=== PATIENT | female | born 1975 | race Caucasian/White ===

== ENCOUNTER 2020-05-12 14:35 | Inpatient (IN) | payer SELFPAY, OTHER ==
[2020-05-12] VITALS (22 sets, daily range): BP systolic 110–133; BP diastolic 68–85; PULSE 54–126; TEMP 27.7–37.6; O2SAT 82–99; BMI 27.0
[2020-05-12] MEDS: Lactated Ringers 1,000 ML 50 ML IV (15:10)
[2020-05-12] MEDS: Oxytocin 30 units/NS 500 ml 30 UNITS/500 ML IV.SOLN IV (15:43)
[2020-05-12 15:47] LABS: Absolute Lymphocyte Count 1.07 X10^3/uL (0.83-4.51); Absolute Neutrophil Count 7.6 X10^3/uL (2.0-7.7); Basophil# 0.03 X10^3/uL; Basophil% 0.3 % (0-1); Eosinophil# 0.05 X10^3/uL; Eosinophils% 0.5 % (0-5); Hematocrit 37.2 % (37-47); Hemoglobin 12.7 g/dL (12.0-15.0); Lymphocyte # 1.07 X10^3/ul (4.0); Lymphocyte % 11.4 % (19-41); Mean Corp Hgb Conc 34.1 g/dL (32-36); Mean Corpuscular Hgb 33.5 pg (27.0-32.0); Mean Corpuscular Volume 98.2 fL (81-99); Monocyte# 0.53 X10^3/uL; Monocyte% 5.7 % (0-10); NRBC Flagged by Analyzer 0 % (0-5); Neutrophil # 7.62 X10^3/uL (2.7-7.7); Neutrophil % 81.5 % (47-70); Platelet Count 194 K/mm3 (150-450); RBC Distribution Width CV 13.3 % (11.6-14.6); RBC Distribution Width SD 47.9 fl (35.1-43.9); Red Blood Count 3.79 M/mm3 (4.2-5.4); White Blood Count 9.4 K/mm3 (4.4-11.0)
[2020-05-12 16:29] LABS: Amphetamine Urine VISTA NEGATIVE (<1000 ng/mL); Barbiturate Urine VISTA NEGATIVE (< 200 ng/mL); Benzodiazepine Urine VISTA NEGATIVE (< 200 ng/mL); Cocaine Urine VISTA NEGATIVE (< 300 ng/mL); Ecstacy Urine VISTA NEGATIVE (< 500 ng/mL); Methadone Urine VISTA NEGATIVE (< 300 ng/mL); PCP Urine VISTA NEGATIVE (< 25 ng/mL); THC Urine VISTA NEGATIVE (< 50 ng/mL); Vista UDS pH Range 6
[2020-05-12] MEDS: Lactated Ringers 500 ML 999 ML IV (17:41)
--- NOTE | 2020-05-12 17:55 | HP.PCM_ITS ---
- Problem List (1) Advanced maternal age (AMA), 40 years or greater Status: Acute (2) Late care Status: Acute (3) Grand multipara Status: Acute (4) Positive GBS test Status: Acute (5) Oligohydramnios Status: Acute History Date of Admission: 05/12/20 Final CARLOS: 05/19/20 Final CARLOS Source: LMP Gestational age: 39 Weeks and 0 Days History of this : This is a 44 year-old, G [9], P [7017], at 39 weeks gestational age. Presented to office for routine care visit today. During visit limited bedside US SHANIQUE 4cm. NST reactive. Decision for induction of labor due to oligohydramnios and AMA. Allergies No Known Allergies Allergy (Verified 05/12/20 14:56) Home Medications: Home Medications Sertraline HCl [Zoloft] 50 mg PO DAILY 05/12/20 Thyroid,Pork [Dough Machine Operator Thyroid 120] 90 mg PO DAILY 05/12/20 Smoking Status: Never smoker Alcohol: None Substance Use Type: Anxiety Medications Number of Fetus(es): 1 NST - FHR Rate Baby A Baseline: 135 Variability:: Moderate Accelerations:: 15 x 15 Decelerations:: Prolonged FHR Category:: Category II Uterine Activity:: contractions mild every 3-4 minutes History Past Pregnancies: Past Pregnancies Delivery Date Name GA/ Weeks Outcome Route Wt Sex Labor Length Anesthesia Delivery Location Provider FOB Labs: GBS positive 1 hr GCT elevated, 3hr GTT normal RPR negative Rubella Immune HBsAG negative HepC antibody negative HIV negative GC/CT negative O positive Expected Delivery Method: Spontaneous Vaginal Review of Systems Constitutional: Denies: Chills, Fever, Weight Change Eyes: Denies: Blurred vision HEENT: Denies: Head Aches, Sinus Congestion, Sinus Drainage Cardiovascular: Denies: Chest Pain, Palpitations Respiratory: Denies: Cough, Shortness of breath at rest, Sputum production Gastrointestinal: Denies: Abdominal Pain, Nausea, Vomiting Genitourinary: Denies: Dysuria Musculoskeletal: Denies: Joint Pain, Joint Tenderness Skin: Denies: Rash, Wounds Neurological: Denies: Numbness, Tingling, Focal weakness Psychiatric: Denies: Anxiety, Depression, Homicidal Ideations, Suicidal Ralph ations Hematologic/ Lymphatic: Denies: Easy Bruising, Easy Bleeding Physical Exam Vitals: Vital Signs Temp Pulse BP Pulse Ox 99.1 F 113 H 117/80 98 05/12/20 17:00 05/12/20 17:53 05/12/20 16:59 05/12/20 17:53 General: Alert, Oriented x3, Cooperative HEENT: Atraumatic, Normocephalic Cardiovascular: Regular rate, Regular Rhythm, No murmurs Lungs: Clear to auscultation, Normal air movement, No rhonchi, No wheeze Abdomen: Bowel Sounds Present, Soft, Non Tender, Gravid Extremities:: No edema Neurological: Deep Tendon Reflexes 2+/4 and Symmetrical. Negative for: Clonus ASSEMBLER CONVERTIBLE TOP: Normal external genitalia Estimated gestational size: Appropriate for gestational size Presentation: Cephalic Cervix Dilation (cm): 3 - small amount of meconium stained fluid. Prolonged FHR deceleration down to 60 and recovered to baseline 135 Station: -2 Effacement (%): 80 Assessment/Plan All Active Problems Advanced maternal age (AMA), 40 years or greater (Acute) Late care (Acute) Grand multipara (Acute) Positive GBS test (Acute) Oligohydramnios (Acute) This is a 44 year-old, G [9], P [7017], at 39 weeks gestational age. A:Induction of Labor at term Oligohydramnios GBS Positive Advanced Maternal age Grandmultipara P: 1) Routine admission and labs 2) GBS prophylaxis 3) AROM for small amount of Meconium stained fluid. FHR deceleration, prolonged. notified and patient stable 4) Continuous EFM 5) Planning unmedicated 6) collaborative physician.
[2020-05-12] MEDS: Amnioinfusion- 0.9% NS 1,000 ML IV.SOLN. 300 ML INTRA-UTER (19:30)
--- NOTE | 2020-05-12 22:58 | PCM.PROGNOTE ---
Patient Problems: Active and Suspected Problems Advanced maternal age (AMA), 40 years or greater (Acute) Late care (Acute) Grand multipara (Acute) Positive GBS test (Acute) Oligohydramnios (Acute) Subjective: Resting in bed, coping with contractions. at bedside. Patient requesting section. Patient states, I just want to t get it over with. Objective: FHR 135, moderate variability, accels, Category 1 TOCO: every 3 minutes, mild to moderate to palpation Cervix 4cm/80%/-1 Pitocin at 8mu's Amnioinfusion at 100ml/hr - Physical Exam Vitals/I&O's: Vital Signs Temp Pulse BP Pulse Ox 97.9 F 101 H 133/83 H 99 05/12/20 22:18 05/12/20 22:18 05/12/20 22:18 05/12/20 22:17 Weight: 167 lb 8.821 oz Body Mass Index (BMI) 27.0 Intake and Output for Last 24 Hours 05/10/20 05/11/20 05/12/20 23:59 23:59 23:59 Intake Total 1701.96 / 1701.96 Output Total 500 / 500 Balance 1201.96 / 1201.96 General: Alert, Oriented x3, Cooperative Microbiology Past 72 Hours 05/12/20 15:15 Mucosa - Nasopharyngeal SARS-CoV-2 Antigen (Rapid) - Final Laboratory Results 05/12/20 14:10: WBC 9.4, RBC 3.79 L, Hgb 12.7, Hct 37.2, MCV 98.2, MCH 33.5 H, MCHC 34.1, RDW Std Deviation 47.9 H, RDW Coeff of Marquise 13.3, Plt Count 194, MPV 9.0, Immature Gran % (Auto) 0.600, Neut % (Auto) 81.5 H, Lymph % (Auto) 11.4 L, Burnett % (Auto) 5.7, Eos % (Auto) 0.5, Baso % (Auto) 0.3, Absolute Neuts (auto) 7.6, Absolute Lymphs (auto) 1.07, Nucleated RBC % 0 05/12/20 14:10: Blood Type O POSITIVE, Antibody Screen NEGATIVE 05/12/20 15:00: Urine Opiates Screen NEGATIVE, Urine Methadone Screen NEGATIVE, Ur Barbiturates Screen NEGATIVE, Ur Phencyclidine Scrn NEGATIVE, Ur Amphetamines Screen NEGATIVE, U Methamphetamin-MDMA NEGATIVE, U Benzodiazepines Scrn NEGATIVE, Urine Cocaine Screen NEGATIVE, U Cannabinoids Screen NEGATIVE, Ur Drug Screen Comment Current Medications Acetaminophen (Acetaminophen 500 Mg Tablet) 500 - 1,000 mg PO Q6H PRN PRN PRN Reason: Pain Score 1-3 Al Hydroxide/Mg Hydroxide (Mag Hydrox/Al Hydrox/Simeth 30 Ml Udc) 15 - 30 ml PO Q4H PRN PRN PRN Reason: INDIGESTION Citric Acid/Sodium Citrate (Sodium Citrate/Citric Acid 30 Ml Udc) 30 ml PO X1 PRN PRN Reason: Section Fentanyl Citrate (Fentanyl 100 Mcg/2 Ml Ampul) 25 - 50 mcg IV Q2H PRN PRN PRN Reason: Pain Score 4-10 Lactated Ringer's () 500 mls @ 999 mls/hr IV .Q31M PRN PRN Reason: Epidural Lactated Ringer's () 500 mls @ 999 mls/hr IV .Q31M PRN PRN Reason: Corrective Measures Last Infusion: 05/12/20 18:12 Dose: Infused Documented by: Lactated Ringer's () 1,000 mls @ 50 mls/hr IV .Q20H [facility] Last Infusion: 05/12/20 18:12 Dose: 50 mls/hr Documented by: Oxytocin/Sodium Chloride () 30 units in 500 mls @ 2 mls/hr IV .Q250H [facility] Last Infusion: 05/12/20 22:20 Dose: 8 mls/hr Documented by: Penicillin G Potassium/Dextrose (Penicillin G Potassium) 3 mu in 50 mls @ 100 mls/hr IV Q4H [facility] Last Infusion: 05/12/20 20:28 Dose: Infused Documented by: Ondansetron HCl (Ondansetron 4 Mg/2 Ml Vial) 4 mg IV Q4H PRN PRN PRN Reason: NAUSEA Prochlorperazine Edisylate (Prochlorperazine 10 Mg/2 Ml Vial) 10 mg IV Q6H PRN PRN PRN Reason: NAUSEA Sodium Chloride (0.9% Saline Lock 10 Ml Syringe) 10 - 40 ml IV X1 PRN PRN Reason: SALINE FLUSH Medical Necessity - Tobacco Use Smoking Status: Never smoker Assessment/Plan All Active Problems Advanced maternal age (AMA), 40 years or greater (Acute) Late care (Acute) Grand multipara (Acute) Positive GBS test (Acute) Oligohydramnios (Acute) A:Induction of labor Category 1 FHT Meconium stained fluid P: 1) Reviewed with patient current status stable and Category 1. Reviewed risks, benefits, and alternatives to elective section. Discussed would not recommend elective at this time. Reviewed labor, induction and normal course and that she is not currently in active labor. Patient and questions answered and agreeable to continue with labor induction at this time. 2) Continue with amnioinfusion
[2020-05-13] VITALS (77 sets, daily range): BP systolic 95–141; BP diastolic 55–93; PULSE 62–109; RESP 16–18; TEMP 36.2–37.9; O2SAT 96–100
[2020-05-13] MEDS: Lactated Ringers 1,000 ML 200 ML IV (00:26)
[2020-05-13] MEDS: fentaNYL-bupivacaine (epidural) 100 ML BAG EPIDURAL (00:54)
[2020-05-13] MEDS: Lactated Ringers 500 ML 999 ML IV ×2 (01:21)
[2020-05-13] MEDS: Oxytocin 30 units/NS 500 ml 30 UNITS/500 ML IV.SOLN 334 UNITS IV (03:50)
--- NOTE | 2020-05-13 04:02 | OP.PCM_ITS ---
Problem List (1) Advanced maternal age (AMA), 40 years or greater Status: Acute (2) Late care Status: Acute (3) Grand multipara Status: Acute (4) Positive GBS test Status: Acute (5) Oligohydramnios Status: Acute (6) Vaginal delivery Status: Acute (7) Meconium stained amniotic fluid, delivered, current hospitalization Status: Acute Vaginal Delivery Maternal Presentation: Medically Indicated Induction Method of Induction: Pitocin Medical Reason for Induction: - - advanced maternal age, oligohydramnios Amniotic Fluid Description: Moderate meconium Final CARLOS: 05/19/20 Final CARLOS Source: US <20 weeks Gestational age: 39 Weeks and 1 Days Date of Procedure: 05/13/20 Pre-Operative Diagnosis: Induction of Labor Post-Operative Diagnosis: Vaginal delivery Surgery/ Procedure Performed: Spontaneous Vaginal Delivery Type of Anesthesia: Epidural Description of Procedure: Progressed to anterior lip. Trial push and anterior lip reduced and good descent with pushing effort. Energy Efficiency Engineer, respiratory, and nursery called for delivery. of viable male infant over intact perineum. APGARS 8,9. head delivered and body forth coming, nuchal cord x1 loose, delivered through. Infant placed on maternal abdomen, mouth and nares suctioned for secretions, strong cry. Pitocin started for active 3rd stage management. Cord clamped and cut after pulsations ceased, delayed cord clamping. Placenta delivered, intact, 3 vessel cord. Perineum inspected and revealed intact perineum. Fundus firm, hemostasis achieved, EBL 100ml. Vaginal sweep completed, sponge and instrument count correct. Mom and baby stable, family bonding well, planning to breastfeed. notified of delivery. Presentation: Vertex Placental Delivery Description: Spontaneous Placenta Disposition: [facility] Cord Vessel Description: 3 Vessels Cord Entanglement: Around neck x 1, loose Estimated Blood Loss: 100 ml A gender: Male (1 minute): 8 (5 minute): 9 Episiotomy Description: None Laceration: None Medications given after delivery: IV Pitocin Complications: None
[2020-05-13] MEDS: Ibuprofen 600 MG Tablet PO ×2 (08:13→20:11)
--- NOTE | 2020-05-13 12:05 | NURSING ---
discussed with pt post- depression. pt currently taking zoloft and states it has helped greatly. pt also states that her doctor told her that she is currently on a low dose and it can be increased if needed. pt states she has help at home and does not feel like she needs to talk to the psychiatric social worker at this time
[2020-05-13] MEDS: Lactated Ringers 500 ML IV.SOLN. IV (14:17)
[2020-05-13] MEDS: 0.9% Saline Lock 10 ML Syringe IV (14:18)
[2020-05-13] MEDS: 0.9% Normal Saline 1,000 ML 125 ML IV ×2 (15:13→19:28)
--- NOTE | 2020-05-13 16:53 | OP.PCM_ITS ---
Report of Operation Date of Procedure: 05/13/20 Pre-Operative Diagnosis: Sterilization request Post-Operative Diagnosis: same Surgery/Procedure Performed:: bilateral salpingectomy Description of Surgical Findings:: normal tubes and ovaries log data technician: Shelley Gallego Type of Anesthesia:: Spinal Anesthesiologist: Rita Villalta Special Medications: none Specimen's removed: bialteral fallopian tubes Drains: none Estimated Blood Loss (mL): 10 Fluids Replaced: 400 mL Description of Procedure: Consent was reviewed. Patient was again informed that this was permanent, irreversible, risk of failure regret and ectopic . She desired to proceed. Spinal was placed and anesthesia was adequate. Patient was prepped and draped in normal sterile fashion in a dorsal supine position. A 4 cm incision was made under the umbilicus using her previous scar and extended through to the underlying layer of fascia with the scalpel. The peritoneum was entered sharply. The incision was extended with sharp dissection. Patient was tilted to the left side and her right tube was identified and followed out to the fimbriated end. It was tented up with [place] clamps. LigaSure device was used to clamp, seal and transect the antimesenteric portion of the tube to the cornual insertion. The LigaSure device was used to clamp, seal and transect the tube from the cornual insertion. Excellent hemostasis of the pedicles was noted. The same procedure was performed on the contralateral side. Again the holes were hemostatic. The fascia was closed en bloc with the peritoneum with 0 Vicryl suture in a running standard fashion. The skin was closed in subcuticular fashion by Dr. Gallego. I performed the remainder the procedure with assistance. Start time: 1634 End time:1657 Grafts/Implants Used: none - Complications none - Admit VTE Documentation VTE Present on Admission: No VTE Mechan Device Prophylaxis: SCD's VTE Pharm Prophylaxis ordered?: No Reason prophylaxis not ordered:: Procedure Not Indicated
[2020-05-13 17:28] LABS: Pathology Specimen OB SEE PATHOLOGY REPORT
--- NOTE | 2020-05-13 17:29 | NURSING ---
1612 pt left the floor via her bed to our op room 1 for an elective tubal ligation. 1710 pt returned from operative room 1 with this nurse, pt alert but drowsy. pt/s spouse is in the room. pt given juice and water to drink, in to see the pt and to give an account of surgery and pt made aware surgery went well. pt and spouse denied they had any questions.
--- NOTE | 2020-05-13 17:45 | FALS_PTH ---
PATIENT: SOCORRO MCCONNELL LOC: [facility] U#:[id number] AGE/SX: 44/F ROOM: WP015 RE05/12/[address]: Nydia Freitas CNM : 1975 BED: 1 DIS: 05/14/2020 SPEC #: [id number] RECD: 05/14/20 07:37 STATUS: CAMPOS REQ #: [id number] NAVID: 05/13/20 17:[address]: Sri Baker DEPT: SURGICAL PATHOLOGY RECD BY: Carolina Sutton ENTERED: 05/14/20 07:38 SP TYPE: FALL TUBES OTHR DR: CESAR Goldberg Dr., Tissues: Fallopian tube Procedures: Surgery Specimen Level II Comments: @ Ordering doctor for [facility] edited from [email or web address] to @ by PILAR at 05/14/20 1502 @ Submitting doctor edited from MANASA to @ by PILAR at 05/14/20 1502 HEADER OPERATION: Tubal ligation PRE-OP DIAGNOSIS: Sterilization TISSUE SUBMITTED: Fallopian tubes MICROSCOPIC DIAGNOSIS Bilateral fallopian tubes, salpingectomy: Bilateral fallopian tubes including fimbrial ends, no pathologic diagnosis. IRVIN:anabella 05/15/20 MICROSCOPIC DESCRIPTION Slides are reviewed. GROSS DESCRIPTION Received in fixative is one container labeled with the patient's name and designated bilateral fallopian tubes, left has suture. The specimen consists of bilateral fallopian tubes including fimbrial ends. The right fallopian tubes measure 6 cm in length and up to 1 cm in diameter and the left fallopian tube measures 7 cm in length and 0.8 cm in diameter. Also present in the container is a detached tubular segment of tissue measuring 1 cm in length and 0.6 cm in diameter. Sections reveal unremarkable cut surfaces. Bird Trapper sections are submitted in two cassettes as follows: 1 - right fallopian tube, 2??left fallopian tube including detached segment which is inked black. / IRVIN:anabella 05/14/20 TC:4 CPT: 37633 x2
[2020-05-13] MEDS: oxyCODONE 5 MG Tablet PO ×2 (17:49→22:55)
[2020-05-13] MEDS: Acetaminophen 500 MG Tablet 1000 MG PO (20:11)
[2020-05-13] MEDS: Sertraline 50 MG Tablet PO (20:12)
[2020-05-14] VITALS (10 sets, daily range): BP systolic 104–109; BP diastolic 63–71; PULSE 60–71; RESP 12–18; TEMP 36.4–37.1; O2SAT 95–96
[2020-05-14] MEDS: Ibuprofen 600 MG Tablet PO ×2 (02:11→11:44)
[2020-05-14] MEDS: 0.9% Normal Saline 1,000 ML 125 ML IV (02:31)
[2020-05-14] MEDS: oxyCODONE 5 MG Tablet PO ×3 (03:30→15:03)
[2020-05-14] MEDS: Acetaminophen 500 MG Tablet 1000 MG PO (05:40)
--- NOTE | 2020-05-14 08:27 | PN.OBGYN_ITS ---
Patient Problems: Active and Suspected Problems Advanced maternal age (AMA), 40 years or greater (Acute) Late care (Acute) Grand multipara (Acute) Positive GBS test (Acute) Oligohydramnios (Acute) Vaginal delivery (Acute) Meconium stained amniotic fluid, delivered, current hospitalization (Acute) Subjective: Patient seen at bedside. Still having pain throughout the night after bilateral tubal ligation yesterday. going well. Desires discharge home later today. - Physical Exam Vitals/I&O's: Vital Signs Temp Pulse Resp BP Pulse Ox 98.3 F 64 18 104/63 96 05/14/20 03:50 05/14/20 03:50 05/14/20 03:50 05/14/20 03:50 05/14/20 03:50 Oxygen Delivery Method Room Air Weight: 167 lb 8.821 oz Body Mass Index (BMI) 27.0 Intake and Output for Last 24 Hours 05/12/20 05/13/20 05/14/20 23:59 23:59 23:59 Intake Total 1704.46 / 1704.46 3582.50 / 3582.50 881.25 / 881.25 Output Total 500 / 500 1750 / 1750 1000 / 1000 Balance 1204.46 / 1204.46 1832.50 / 1832.50 -118.75 / -118.75 General: Alert, Oriented x3 HEENT: Atraumatic Neck: Supple Lungs: Normal air movement Cardiovascular: Regular rate Abdomen: Soft, Non Tender Skin: No rashes Neurological: Cranial nerves II-XII grossly intact Psych/Mental Status: Normal Affect Microbiology Past 72 Hours 05/12/20 15:15 Mucosa - Nasopharyngeal SARS-CoV-2 Antigen (Rapid) - Final Current Medications Acetaminophen (Acetaminophen 500 Mg Tablet) 1,000 mg PO Q8H PRN PRN PRN Reason: Pain Score 1-10 Last Admin: 05/14/20 05:40 Dose: 1,000 mg Documented by: Bisacodyl (Bisacodyl 10 Mg Suppository) 10 mg RECTAL UD PRN PRN Reason: If no BM Dibucaine (Dibucaine 30 Gm Tube) 1 applic TOPICAL TID PRN PRN; Protocol PRN Reason: Discomfort Hydrocortisone (Hydrocortisone 2.5% Crm) 1 applic TOPICAL TID PRN PRN; Protocol PRN Reason: Discomfort Sodium Chloride () 1,000 mls @ 125 mls/hr IV .Q8H [facility] Last Admin: 05/14/20 02:31 Dose: 125 mls/hr Documented by: Ibuprofen (Ibuprofen 600 Mg Tablet) 600 mg PO Q6H PRN PRN PRN Reason: Pain Score 1-10 Last Admin: 05/14/20 02:11 Dose: 600 mg Documented by: Methylergonovine Maleate (Methylergonovine 0.2 Mg/Ml Ampul) 0.2 mg IM X1 PRN PRN Reason: Excess bleeding/uterine atony Ondansetron HCl (Ondansetron 4 Mg/2 Ml Vial) 4 mg IV Q4H PRN PRN PRN Reason: Nausea Oxycodone HCl (Oxycodone 5 Mg Tablet) 5 mg PO Q4H PRN PRN PRN Reason: Pain Score 6-10 Last Admin: 05/14/20 03:30 Dose: 5 mg Documented by: Senna/Docusate Sodium (Senna/Docusate Sodium 1 Tablet) 1 - 2 tablet PO DAILY PRN PRN PRN Reason: Constipation Sertraline HCl (Sertraline 50 Mg Tablet) 50 mg PO DAILY [facility] Last Admin: 05/13/20 20:12 Dose: 50 mg Documented by: Simethicone (Simethicone 80 Mg Tablet) 80 mg PO PCHS PRN PRN Reason: Indigestion/Stomach pain Sodium Chloride (0.9% Saline Lock 10 Ml Syringe) 5 - 15 ml IV UD PRN PRN Reason: SALINE FLUSH Last Admin: 05/13/20 14:18 Dose: 10 ml Documented by: Medical Necessity - Tobacco Use Smoking Status: Never smoker Assessment/Plan All Active Problems Advanced maternal age (AMA), 40 years or greater (Acute) Late care (Acute) Grand multipara (Acute) Positive GBS test (Acute) Oligohydramnios (Acute) Vaginal delivery (Acute) Meconium stained amniotic fluid, delivered, current hospitalization (Acute) PPD #2 POD #1 Bilateral Tubal Ligation Pain control Routine care Discharge home with follow up in office
--- NOTE | 2020-05-14 08:35 | DCINST_ITS ---
Discharge Diet: No Restrictions Discharge Activity: Return to Normal Activity, No Restrictions May resume sexual activity in: 6-8 weeks Call your doctor if your incision/area has: Continuous Slow Oozing, Sudden Increased Bleeding, Increased Pain/ Swelling, Increased Redness, Swelling at the incision site Call your doctor if you observe: Fever of 101 or Higher, Inability to have a bowel movement, Using more than one pad per hour, Shortness of breath, Dizziness Additional Instructions: If you experience any of the following, contact your healthcare provider. * Bleeding that soaks a pad every hour for 2 hours * Fever 100.4 or higher * Unrelieved incision or abdominal pain * Swelling, redness, discharge or bleeding from your incision or episiotomy site * Your incision begins to separate * Problems urinating (including inability to urinate or burning while urinating). * Visual changes * Severe headache * Flu-like symptoms * Pain or redness in one of both of your breasts * Pain, warmth, tenderness or swelling in your legs, especially the calf area * Frequent nausea and vomiting * Symptoms of depression or anxiety If you experience any of the following, call 911 or go to the nearest Emergency Room. * Chest pain * Problems breathing * Seizure activity * Partial or complete paralysis of a body part, slurred speech, weakness or drooping of the face, or a sudden inability to walk or hold your balance Allergies/Adverse Reactions: Allergies No Known Allergies Allergy (Verified 05/12/20 14:56) Medications to take at Discharge Sertraline HCl [Zoloft] 50 mg PO DAILY 05/12/20 Thyroid,Pork [Instrument Repair Supervisor Thyroid] 90 mg PO DAILY 05/12/20 Oxycodone [Oxyir] 5 mg PO Q6H PRN PRN 7 Days #10 tablet 05/14/20 The following prescriptions were given: Oxycodone [Oxyir] 5 mg PO Q6H PRN PRN 7 Days #10 tablet PRN Reason: Pain Score 6-10 Transmission Status: Sent to [id number] When: 2 weeks in office Primary Care Physician: Reji Chicas DO [Primary Care Provider] - Test Results: Test results from this visit will be discussed in further detail at your follow- up appointment, if applicable. Proposed Discharge Date: 05/14/20
--- NOTE | 2020-05-14 08:35 | PCM.DCVAG ---
Discharge Diet: No Restrictions Discharge Activity: Return to Normal Activity, No Restrictions May resume sexual activity in: 6-8 weeks Call your doctor if your incision/area has: Continuous Slow Oozing, Sudden Increased Bleeding, Increased Pain/ Swelling, Increased Redness, Swelling at the incision site Call your doctor if you observe: Fever of 101 or Higher, Inability to have a bowel movement, Using more than one pad per hour, Shortness of breath, Dizziness Additional Instructions: If you experience any of the following, contact your healthcare provider. Bleeding that soaks a pad every hour for 2 hours Fever 100.4 or higher Unrelieved incision or abdominal pain Swelling, redness, discharge or bleeding from your incision or episiotomy site Your incision begins to separate Problems urinating (including inability to urinate or burning while urinating). Visual changes Severe headache Flu-like symptoms Pain or redness in one of both of your breasts Pain, warmth, tenderness or swelling in your legs, especially the calf area Frequent nausea and vomiting Symptoms of depression or anxiety If you experience any of the following, call 911 or go to the nearest Emergency Room. Chest pain Problems breathing Seizure activity Partial or complete paralysis of a body part, slurred speech, weakness or drooping of the face, or a sudden inability to walk or hold your balance Allergies/Adverse Reactions: Allergies No Known Allergies Allergy (Verified 05/12/20 14:56) Medications to take at Discharge Sertraline HCl [Zoloft] 50 mg PO DAILY 05/12/20 Thyroid,Pork [Sports Apparel Internship Thyroid] 90 mg PO DAILY 05/12/20 Oxycodone [Oxyir] 5 mg PO Q6H PRN PRN 7 Days #10 tablet 05/14/20 The following prescriptions were given: Oxycodone [Oxyir] 5 mg PO Q6H PRN PRN 7 Days #10 tablet PRN Reason: Pain Score 6-10 Transmission Status: Sent to [id number] When: 2 weeks in office Primary Care Physician: Reji Chicas DO [Primary Care Provider] - Test Results: Test results from this visit will be discussed in further detail at your follow-up appointment, if applicable. Proposed Discharge Date: 05/14/20
[2020-05-14] MEDS: Sertraline 50 MG Tablet PO (09:52)
--- NOTE | 2020-05-14 12:35 | CASEMGMT ---
Social Work Assessment Labor and Delivery Unit Patient Address: [address] [place] [address] Phone number: [phone] Date of Referral: 05.13.2020 Time of Referral: 2207 Referred By: Nydia Freitas CNM Date of Intervention: 05.14.2020 Time of Intervention: 1245 Reason for Referral: Maternal history of depression, on Zoloft History obtained from: Medical records and mother of baby (MOB) Cintia Oakes Household composition: MOB, father of baby (FOB) Muna Oakes, and their older children. Home situation reported as safe and adequate. Patient's parent/guardian status: MOB and FOB are both 42, , and from the [facility]. Parents have 8 children ages: 20, 19, 17. 15, 12, 8, 5, and . Willis is named Grant, and was born on 05.13.2018. MOB denies any form of abuse or safety issues in the home. Medical History: MOB is G9, P7 to 8 after delivering Grant. care started at 21 weeks. This delivery the first hospital delivery for CHILO. MOB reports she had a tubal ligation at time of delivery. was born weighing 6 pounds 13 ounces. Apgars 8 and 9 at 1 and 5 minutes of life. Educational Status: 8th grade education, as is the norm for the [facility]. MOB reports can read and write, no issues reported. Financial Status: ANA works as a ed[employer] and several of the older boys help with this business. Supplies: MOB reports to have all needed supplies, including a safe sleep space and can get a car seat for home going. Childcare/Caregiver(s): MOB is the primary caregiver with help from family when needed. Transportation: Horse and buggy or hired local flatbed driver. Programs/Agencies Involved: None. Children Services/Legal Issues: None reported. Behavioral Health Issues: Mental Health History: MOB reports history of depression. Reports has thought of dying in the past, but denies any planning, intention, or action. Denies any such thoughts currently or during the . MOB reports sometimes she get overwhelmed, and much is from lack of sleep. MOB reports to feel the Zoloft that currently on has been helpful in managing depressive symptoms, and plans to stay on this medication in the period. MOB reports she talks to the FOB when upbeat and the FOB is supportive and encouraging to MOB. No history of thoughts of harm to others. Substance Use History: Denies. Family History: none reported. Drug Screens: not performed. Family/Social Stressors: No reported stressors. was a surprise and admittedly and adjustment for MOB. MOB reports however that would not change having the baby for anything. Support Systems: MOB reports the FOB, the older children, and family are supports. MOB's 17 year old daughter will be MOB's helper at home in the period. Depression/Shaken Baby/Safe Sleeping: Information provided on all topics. Discussed risk for period, and benefit of remaining on antidepressant in this period. MOB voices intent to do so. ASSESSMENT: Met with MOB in room who was lying in bed and baby sleeping soundly in the bedside crib. MOB talkative, pleasant, and expressed appreciation for social worker psychiatric coming to check in. Affect constricted, but did smile at appropriate times and when talking about the baby. Eye contact normal. MOB appears to have insight into her history of depression, and recognizes that medication has been helpful to managing symptoms. MOB plans to stay on medication in the period, and reports that if depressive symptoms become distressing or any thoughts of dying arise in the future would talk to the FOB for support. Provided MOB with resource list and where to turn if MOB would like to seek out counseling in the future. Packet on mood and anxiety disorders also provided. MOB accepted information and expressed thanks. No voiced concerns from nursing staff regarding mother/child bonding or interactions. PLAN: MOB and baby to home with resources provided for home going. No other services requested or indicated. -HEATHER Zamorano MSW *Information documented in this assessment generated with [employer]*
== END 2020-05-14 15:20 | disposition home or self-care (01) | DRG 798 ==
PROVIDERS: Obstetrics & Gynecology; Admitting Provider Advanced Practice Midwife; PCP Family Medicine; Referring Provider Advanced Practice Midwife; Visit Provider Advanced Practice Midwife
DX: O41.03X0 Oligohydramnios, third trimester, not applicable or unspecified (principal); Z30.2 Encounter for sterilization; O99.824 Streptococcus B carrier state complicating childbirth; O77.0 Labor and delivery complicated by meconium in amniotic fluid; O76 Abnormality in fetal heart rate and rhythm complicating labor and delivery; O69.81X0 Labor and delivery complicated by cord around neck, without compression, not applicable or unspecified; Z79.899 Other long term (current) drug therapy; Z3A.39 39 weeks gestation of pregnancy; Z37.0 Single live birth
CPT/HCPCS: 59025; 59050; 80307; 85025; 86850; 86900; 86901; 87426; 88302; 99218; J7030; J7120; A4216; G0378; J2405